=== PATIENT | female | born 1955 | race Caucasian/White ===

== ENCOUNTER 2018-01-27 23:50 | Emergency (ER) | payer MEDICAID ==
[~2018-01-27] VITALS: Ht 175.3 cm; Wt 73.8 kg
[~2018-01-27 23:50] MED LIST: ALBU6.7H INH; BUS15T PO; CLIN300C85 PO; FAMO-1 PO; GEMF600T4 PO; GLIP-127 PO; GUAI120L55 PO; NOR5T PO; ONDA8TAB6 PO; PARO10TA23 PO; QUET25TA PO; [UNRECOGNIZED DRUG - CODE]
[2018-01-28 00:45] VITALS: BP 155/83
[2018-01-28 10:56] LABS: CRYPTOSPORIDIUM AG NEGATIVE (Neg); GIARDIA LAMBLIA AG NEGATIVE (Neg)
== END 2018-01-28 02:05 | disposition home or self-care (01) ==
LOC: ER 23:50
DX: R19.7 Diarrhea, unspecified (principal); I10 Essential (primary) hypertension; E11.9 Type 2 diabetes mellitus without complications; E78.00 Pure hypercholesterolemia, unspecified; Z88.1 Allergy status to other antibiotic agents; Z88.8 Allergy status to other drugs, medicaments and biological substances; Z79.899 Other long term (current) drug therapy
CPT/HCPCS: 99283